=== PATIENT | female | born 1980 | race Caucasian/White ===

== ENCOUNTER 2016-08-21 14:09 | Emergency (ER) | payer MEDICARE, MEDICAID ==
[2016-08-21 14:21] VITALS: BP 115/73
[2016-08-21] MEDS ORDERED: IBUPROFEN 400 MG TABLET PO ONE (14:49)
--- OUTSIDE RECORDS SUMMARY | 2016-08-21 14:55 | XMS REPORT | Continuity of Care Document ---
:1980 Author Organization [facility] ([facility]) Address [address] [place] [address] Phone [phone] Care Team Providers Name Role Phone [phone], Need To Check Primary Care Provider Unavailable Source Comments This disclosure is being made pursuant to the Care Everywhere program, applicable federal and state laws, and may not contain all informaitonavailable regarding this patient.[facility] ([facility]) Active Allergies and Adverse Reactions Allergen Noted Date Severity Reactions Comments Codeine 02/13/2009 Nausea & Vomiting,Dizziness Other Agent 09/15/2010 Urticaria Lips, throat, and eyes (Hives),Angioedema swell, hives fruit acid. Current Medications Prescription Sig. Disp. Refills Start Date End Date Status SUMATRIPTAN SUCCINATE take by mouth as Active (IMITREX PO) needed. For migraines lubiprostone Take 1 Cap by 30 Cap 1 04/09/2011 Active (AMITIZA) 24 mcg mouth daily. capsule Indications: Chronic Idiopathic Constipation levothyroxine 50 mcg Take 50 mcg by Active tablet mouth every morning before breakfast. buPROPion 75 mg Take 75 mg by Active tablet mouth 2 times daily. lamoTRIgine 100 mg XR Take 200 mg by 10/16/2015 Active tablet mouth daily. lactobacillus Take 1 capsule by Active rhamnosus (gg) mouth daily. (CULTURELLE) 15 billion cell capsule docusate 100 mg Take 200 mg by Active capsule mouth daily. simethicone 250 mg Take 1 tablet by Active cap mouth daily. cholecalciferol Take 5,000 Units Active (VITAMIN D3) 5,000 by mouth daily. unit capsule DULoxetine 30 mg XR Take 1 capsule (30 30 capsule 11 10/29/2015 Active capsule mg total) by mouth daily. Active Problems Problem Noted Date H/O: hysterectomy 09/15/2010 Irritable bowel syndrome 09/15/2010 Other specified and placental problems affecting management of 2007 mother, antepartum Most Recent Encounters Date Type Specialty Providers Description 08/17/2016 Lab Requisition Pathology Lab Services, Dx: Neoplasm of [facility] uncertain behavior of skin 08/16/2016 Office Visit Selvin Cheng MD Subj: Appointment Specialty Scheduled Immunizations Name Dates Previously Given Next Due Influenza, unspecified 05/02/2015 Social History Tobacco Use Types Packs/Day Years Used Date Former Smoker Cigarettes 0.5 Quit: 03/24/2008 Smokeless Tobacco: Never Used Tobacco Cessation:Counseling Given: Yes Comments: Alcohol Use Drinks/Week oz/Week Comments No Last Filed Vital Signs Vital Sign Reading Time Taken Blood Pressure 110/64 12/23/2015 9:02 AM CDT Pulse 60 12/23/2015 9:02 AM CDT Temperature 36.8 C (98.2 F) 12/23/2015 9:02 AM CDT Respiratory Rate 16 12/23/2015 9:02 AM CDT Height 1.584 m (5' 2.36") 12/23/2015 9:02 AM CDT Weight 71.215 kg (157 lb) 12/23/2015 9:02 AM CDT Body Mass Index 28.38 12/23/2015 9:02 AM CDT Oxygen Saturation - - Plan of Care Date Type Specialty Providers Description 09/08/2016 Appointment Selvin Cheng MD [address] [place] [address] [phone] (Fax) Subj: Appointment Specialty Dk Patrick MD [address] [place] [address] [phone] (Fax) Rescheduled 09/08/2016 Appointment Selvin Cheng MD [address] [place] [address] [phone] (Fax) Subj: Appointment Specialty Dk Patrick MD [address] [place] [address] [phone] (Fax) Scheduled Default, Other Billg - Defo [address] [place] [address] [phone] (Fax) Hossein Swartz MD [address] [place] [address] [phone] (Fax) Health Maintenance Due Date Last Done Comments Hepatitis B Vaccine (1 of 3 - Primary Series) 1980 Tdap Vaccine 1989 Lipid Disorder Screening 1996 MMR Vaccine 1996 Td Vaccine 1996 Cervical Cancer Screening 2008 Influenza Vaccine: Seasonal (#1) 01/12/2016 05/02/2015 Results from Last 3 Months DERMATOPATHOLOGY EXAM (08/13/2016 9:00 AM) Component Value Range Case Report Surgical Pathology Case: [id number] Authorizing Provider:[facility], [facility] Collected: 08/13/2016 09:00 AM Pathologist: Samantha Loomis MD Received:08/17/2016 09:53 AM Specimen:Skin, other, specify, R shoulder Diagnosis Skin, right shoulder, shave biopsy: Seborrheic keratosis. I have personally reviewed this case and edited the report as necessary. Clinical Information Tissue source/site: [id number] shoulder. Pertinent clinical history and findings: 0.7 cm brown slight papule. Clinical differential diagnosis: Irrit justyna K versus atypical nevus. Gross Description A.Received in formalin, in a container labeled Debbie Betts M, date of , and "R shoulder", is a 1.2 x 0.8 x 0.1 cm walsh shave biopsy.The specimen is inked, quadrisected and submitted entirely in A1. 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 Margins appear uninvolved in the plane of sectioning. Performed by:Dk Cox MD, R4/rls Specimen Skin - Skin, other, specify
[2016-08-21] MEDS ORDERED: IBUPROFEN 400 MG TABLET ONE (15:00)
--- NOTE | 2016-08-21 15:00 | ERNOTE ---
Lower Extremity HPI - Narrative Date of Service: 08/21/16 - General Lower Extremities Pain: ankle: right Time Seen by Provider: 08/21/16 14:37 Source: patient Exam Limitations: no limitations - Immun/Allergies/Home Medications Immunizations: IMMUNIZATION HX Immunizations Up to Date Yes History of Influenza Vaccine Yes Allergies/Adverse Reactions: Allergies Allergy/AdvReac Type Severity Reaction Status Date / Time codeine [Codeine] AdvReac Severe Nausea Verified 08/21/16 14:21 Home Medications: HOME MEDICATIONS Sennosides [Senna] 8.6 mg PO BID 01/09/13 [Last Taken 01/09/13] Simethicone [Gas Relief] 125 mg PO DAILY 09/22/15 [Last Taken Unknown] lamoTRIgine [Lamictal] 50 mg PO HS 09/22/15 [Last Taken Unknown] Levothyroxine Sodium [Synthroid] 25 mcg PO DAILY 12/24/15 [Last Taken Unknown] Ibuprofen [Motrin] 800 mg PO QID #100 tab 08/21/16 [Last Taken Unknown] Lubiprostone [Amitiza] 8 mcg PO DAILY 08/21/16 [Last Taken Unknown] - History of Present Illness Narrative: Missed a step after an indoor stairway landing at her boyfriend's mother's house , resulting in an inversion injury right ankle. Previous fracture right ankle. Lots of pain, lateral right ankle and dorsolateral right foot. Occurred: just prior to arrival Location of Incident: other Method of Injury: Reports: other Reason for Fall: Reports: other Loss of Consciousness: Reports: no loss of consciousness Modifying Factors - (Improves): Reports: rest Modifying Factors - (Worsens): Reports: jarring, movement Associated Symptoms: Reports: unable to bear weight Other Injuries: Reports: none Subsequent Symptoms: Denies: sensory loss, numbness, motor loss Prior Treament: Denies: currently on antibiotics Review of Systems - Review of Systems Constitutional: Present: no symptoms reported EYE: Present: no symptoms reported ENT: Present: no symptoms reported Respiratory: Present: no symptoms reported Cardiology: Present: no symptoms reported Gastrointestinal/Abdominal: Present: no symptoms reported Genitourinary: Present: no symptoms reported Musculoskeletal: Present: See HPI Skin: Present: no symptoms reported Neurological: Present: no symptoms reported Endocrine: Present: no symptoms reported Hematologic/Lymphatic: Present: no symptoms reported Psych: Present: no symptoms reported All Other Systems: All systems neg except as marked - Patient's Past Medical History Patient History - Medical: No pertinent hx, Hypothyroidism, Seizures Patient History - Cancer: No Hx of Cancer Patient History - Surgical Procedures: Cholecystectomy, Other - Social History Living Situations: home Alcohol Use: none Drug Use: none - Immunizations Immunizations Up to Date: Yes History of Influenza Vaccine: Yes Physical Exam - Physical Exam General Appearance: Present: wd/wn, alert, no apparent distress Eye Exam: Normal inspection: bilateral, PERRL: bilateral, EOMI: bilateral Ears, Nose, Throat: Present: normal ENT inspection Neck: Present: normal inspection Respiratory: Present: no respiratory distress Cardiovascular/Chest: Present: regular rate, rhythm Back Exam: Present: normal inspection Extremity Exam: Present: other - right lateral ankle swollen, distal fibula, lateral ligaments, and dorsolateral right mule tender. Neurological Exam: Present: alert, oriented, normal mood/affect, no motor/ sensory deficits Skin Exam: Present: normal color, warm/dry ED Progress - Vital Signs Patient's Vital Signs:: I have reviewed the patient's vital signs. Vital Signs: Vital Signs 08/21/16 14:15 Temperature 37.1 C Pulse Rate 89 Respiratory 12 Rate Blood Pressure 115/73 O2 Sat by Pulse 100 Oximetry - X-Ray X-Ray #1 X-Ray: ankle Interpretation: Interp. by me - tiny fracture line through distal fibula. - Progress/Reassessment Chief Complaint: Ankle Injury/ Pain Progress:: Improved Departure Clinical Impression: Sprain of ankle Qualifiers: Encounter type: initial encounter Involved ligament of ankle: unspecified ligament Laterality: right Qualified Code(s): S93.401A - Sprain of unspecified ligament of right ankle, initial encounter Fibula fracture Qualifiers: Encounter type: initial encounter Fibula location: distal Fracture type: closed Fracture morphology: other fracture Laterality: right Qualified Code(s): S82.831A - Other fracture of upper and lower end of right fibula, initial encounter for closed fracture - Departure Disposition: Home self-care Condition: Good Instructions: Ankle Sprain, Fibular Ankle Fracture Treated With or Without Immobilization, Adult, RICE for Routine Care of Injuries, [id number] Additional Instructions: Call ortho office on Tuesday, for appt sometime next week. Prescriptions: Ibuprofen [Motrin] 800 mg PO QID #100 tab
== END 2016-08-21 15:32 | disposition home or self-care (01) ==
LOC: ER 14:09
PROC: 2W3SX1Z Immobilization of Right Foot using Splint (ICD-10-PCS; principal; 2016-08-21)
DX: S93.401A Sprain of unspecified ligament of right ankle, initial encounter (principal); S82.831A Other fracture of upper and lower end of right fibula, initial encounter for closed fracture; W10.8XXA Fall (on) (from) other stairs and steps, initial encounter; Y93.9 Activity, unspecified; Y92.009 Unspecified place in unspecified non-institutional (private) residence as the place of occurrence of the external cause; E03.9 Hypothyroidism, unspecified

== ENCOUNTER 2016-09-07 21:11 | Emergency (ER) | payer MEDICARE, MEDICAID ==
--- OUTSIDE RECORDS SUMMARY | 2016-09-07 22:32 | XMS REPORT | Continuity of Care Document ---
:1980 Author Organization [facility] ([facility]) Address [address] [place] [address] Phone [phone] Care Team Providers Name Role Phone [phone], Need To Check Primary Care Provider Unavailable Source Comments This disclosure is being made pursuant to the Care Everywhere program, applicable federal and state laws, and may not contain all informaitonavailable regarding this patient.[facility] ([facility]) Active Allergies and Adverse Reactions Allergen Noted [...] Description 09/08/2016 Appointment Selvin Cheng MD [address] [place] [address] [phone] (Fax) Dx: Vision loss, Specialty Dk Patrick MD [address] [place] [address] [phone] (Fax) right eye (Primary Dx) 09/08/2016 Appointment Selvin Cheng MD [address] [place] [address] [phone] (Fax) Subj: Upcoming Appt Specialty Dk Patrick MD [address] [place] [phone] (Fax) Reminder Default, Other Billg - Defo [address] [place] [address] [phone] (Fax) Hossein Swartz MD [address] [place] [address] [phone] (Fax) Health Maintenance Due Date Last Done Comments Hepatitis B Vaccine (1 of 3 - Primary Series) 1980 Tdap Vaccine 1989 Lipid Disorder Screening 1996 MMR Vaccine 1996 Td Vaccine 1996 Cervical Cancer Screening 2008 Influenza Vaccine: Seasonal (#1) 01/12/2016 05/02/2015 Results from Last 3 Months DERMATOPATHOLOGY EXAM (08/13/2016 9:00 AM) Component Value Range Case Report Surgical Pathology Case: [id number] Authorizing Provider:[facility], [facility] Collected: 08/13/2016 09:00 AM Pathologist: Samantha Loomis MD Received:08/17/2016 09:53 AM Specimen:Skin, other, specify, R shoulder Diagnosis Skin, right shoulder, shave biopsy: Seborrheic keratosis. I have personally reviewed this case and edited the report as necessary. Clinical Information Tissue source/site: [id number] shoulder. Pertinent clinical history and findings: 0.7 cm brown slight papule. Clinical differential diagnosis: Irrit justyna K versus atypical nevus. Gross Description A.Received in formalin, in a container labeled Debbie Betts, date of , and "R shoulder", is [...]
--- NOTE | 2016-09-07 22:46 | ERNOTE ---
Medical Problem HPI - General Chief Complaint: Laceration Time Seen by Provider: 09/07/16 22:26 Source: patient, family Exam Limitations: no limitations - Immun/Allergies/Home Medications Immunizations: IMMUNIZATION HX Immunizations Up to Date Yes History of Influenza Vaccine Yes Allergies/Adverse Reactions: Allergies codeine [Codeine] Adverse Reaction (Severe, Verified 08/21/16 14:21) Nausea Home Medications: HOME MEDICATIONS Sennosides [Senna] 8.6 mg PO BID 01/09/13 [Last Taken 01/09/13] Simethicone [Gas Relief] 125 mg PO DAILY 09/22/15 [Last Taken Unknown] lamoTRIgine [Lamictal] 50 mg PO HS 09/22/15 [Last Taken Unknown] Levothyroxine Sodium [Synthroid] 25 mcg PO DAILY 12/24/15 [Last Taken Unknown] Ibuprofen [Motrin] 800 mg PO QID #100 tab 08/21/16 [Last Taken Unknown] Lubiprostone [Amitiza] 8 mcg PO DAILY 08/21/16 [Last Taken Unknown] - History of Present History Narrative: lacerated her finger trying to get a knife out of the drawer. Timing: constant Severity: mild Review of Systems - Review of Systems All Other Systems: All systems neg except as marked - Patient's Past Medical History Patient History - Medical: No pertinent hx, Hypothyroidism, Seizures Patient History - Cancer: No Hx of Cancer Patient History - Surgical Procedures: Cholecystectomy, Other - Social History Living Situations: home Alcohol Use: none Drug Use: none - Immunizations Immunizations Up to Date: Yes History of Influenza Vaccine: Yes Physical Exam - Physical Exam General Appearance: Present: wd/wn, alert, no apparent distress Ears, Nose, Throat: Present: normal ENT inspection Respiratory: Present: no respiratory distress, no accessory muscle use Extremity Exam: Present: normal except - - left ring finger has laceration starting on the pad and going through to the medial side, no bleeding Neurological Exam: Present: alert, oriented, normal mood/affect, no motor/ sensory deficits Skin Exam: Present: other - laceration left ring finger ED Progress - Progress/Reassessment Chief Complaint: Laceration Procedures Left 4th Digit Date and Time: Laceration repair left ring finger pad Anesthesia: 1% Lidocaine I & D Prep: betadine prep, sterile drapes applied Length of Repair/Wound (cm): 1.25 - on pad 0.5 cm on side Wound's Depth/Shape: into subcutaneous - from palmar surface of the pad and out the medial side of the finger Wound Explored: clean, no foreign body Wound Intervention: irrigated w/saline Distal NVT: neuro/vasc intact, no tendon injury Wound Repaired With: sutures Suture Size/Type: 5-0, nylon Number of Sutures: 3 - only pad laceration closed, side lac closed with steri strips Layer Closure: Simple Estimated blood loss (ml): 10 Wound Dressing: sterile dressing applied, splint applied Complications: Pt rené procedure well Departure - Departure Clinical Impression: Laceration of finger of left hand Qualifiers: Encounter type: initial encounter Qualified Code(s): S61.219A - Laceration without foreign body of unspecified finger without damage to nail, initial encounter Disposition: Home Follow Up Needed Condition: Good Instructions: Laceration Care, Adult, [id number] Additional Instructions: May take tylenol or ibuprofen for pain as needed. Keep elevated to help with throbbing. have sutures taken out in 7-10 days
[2016-09-07] MEDS ORDERED: LIDOCAINE HCL 20 ML VIAL ONE (23:17)
[2016-09-08 00:11] VITALS: BP 109/75
== END 2016-09-07 23:52 | disposition home or self-care (01) ==
LOC: ER 21:11
PROC: 0JQK0ZZ Repair Left Hand Subcutaneous Tissue and Fascia, Open Approach (ICD-10-PCS; principal; 2016-09-07)
DX: S61.219A Laceration without foreign body of unspecified finger without damage to nail, initial encounter (principal); W26.0XXA Contact with knife, initial encounter; Y93.G3 Activity, cooking and baking; Y92.9 Unspecified place or not applicable; Y99.8 Other external cause status

== ENCOUNTER 2017-06-18 15:58 | Emergency (ER) | payer MEDICARE, MEDICAID ==
[2017-06-18] MEDS ORDERED: ASPIRIN 81 MG TAB.CHEW ONE (16:25)
[2017-06-18] MEDS: ASPIRIN 81 MG TAB.CHEW PO ONE (16:27)
[2017-06-18 16:35] LABS: Hematocrit 40.3 % (37.0-47.0); Hemoglobin 13.8 gm/dL (12.5-16.0); Mean Cell Volume 89.6 fl (78-100); Mean Corpuscular Hemoglobin 30.7 pg (27-31); Mean Corpuscular Hgb Conc 34.2 g/dl (32-36); Mean Platelet Volume 11.6 fl (6.0-9.5); Neutrophil # 5.1 K/mm3 (1.3-6.0); Neutrophil % 63.5 % (42-75.0); Platelet Count 162 K/mm3 (150-450); Red Cell Distribution Width 11.9 % (11.5-14.0); White Blood Count 8.1 K/mm3 (4.0-10.5)
[2017-06-18 16:53] LABS: ALT 20 U/L (19-67); AST 14 U/L (0-48); Albumin * 3.6 gm/dl (3.4-5.0); Alkaline Phosphatase * 52 U/L (50-170); Anion Gap 9.4 mmol/L (6.8-13.8); BUN/Creatinine Ratio 11.8 (9.0-21.6); Bilirubin, Total 0.4 mg/dL (0.0-1.1); Blood Urea Nitrogen 11 mg/dL (3-23); Ca. Corrected For Albumin 8.4 mg/dL (8.4-10.2); Calcium * 8.4 mg/dL (7.9-10.9); Carbon Dioxide 27.3 mmol/L (24-32.6); Chloride 108 mmol/L (97-106); Glucose * 89 mg/dL (70-110); Magnesium 1.7 mg/dL (1.2-2.8); Potassium 3.7 mmol/L (3.4-4.6); Sodium 141 mmol/L (132-142); Total Protein 7.2 gm/dL (6.2-8.2); Troponin I Less than 0.017 ng/ml (0.00-0.10)
[2017-06-18] MEDS ORDERED: AZITHROMYCIN 250 MG TABLET ONE (18:19)
[2017-06-18] MEDS: AZITHROMYCIN 250 MG TABLET PO ONE (18:22)
--- NOTE | 2017-06-18 18:22 | ERNOTE ---
Chest Pain/Cardiac HPI Chief Complaint: Chest Pain Time Seen by Provider: 06/18/17 16:11 Source: patient Exam Limitations: no limitations Immunizations: IMMUNIZATION HX Immunizations Up to Date Yes History of Influenza Vaccine Yes Allergies/Adverse Reactions: Allergies codeine [Codeine] Adverse Reaction (Severe, Verified 08/21/16 14:21) Nausea Home Medications: HOME MEDICATIONS Sennosides [Senna] 8.6 mg PO BID 01/09/13 [Last Taken 01/09/13] Simethicone [Gas Relief] 125 mg PO DAILY 09/22/15 [Last Taken Unknown] lamoTRIgine [Lamictal] 50 mg PO HS 09/22/15 [Last Taken Unknown] Levothyroxine Sodium [Synthroid] 25 mcg PO DAILY 12/24/15 [Last Taken Unknown] Ibuprofen [Motrin] 800 mg PO QID #100 tab 08/21/16 [Last Taken Unknown] Lubiprostone [Amitiza] 8 mcg PO DAILY 08/21/16 [Last Taken Unknown] Azithromycin [Zithromax] 250 mg PO DAILY #6 tablet 06/18/17 [Last Taken Unknown] Narrative: Patient presents with shortness of breath and chest pain with deep breath. 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 Her primary complaint however is shortness of breath and his onset was perhaps 24 hours ago and recent moderate in severity Timing: constant Severity/Quality: moderate Location: left chest Chest Pain Radiation: no radiation Activities at Onset: none Modifying Factors - Improves: Present: nothing Modifying Factors - Worsens: Present: nothing Aspirin Treatment Today: 81 mg x 4, provided by ED Associated Symptoms: Present: shortness of breath Prior Chest Pain/Cardiac Workup: Reports: non-cardiac Review of Systems - Review of Systems Constitutional: Present: See HPI EYE: Present: no symptoms reported ENT: Present: no symptoms reported Respiratory: Present: See HPI Cardiology: Present: chest pain Gastrointestinal/Abdominal: Present: no symptoms reported Genitourinary: Present: no symptoms reported Musculoskeletal: Present: no symptoms reported Skin: Present: no symptoms reported Neurological: Present: no symptoms reported Endocrine: Present: no symptoms reported Hematologic/Lymphatic: Present: no symptoms reported Psych: Present: no symptoms reported - Patient's Past Medical History Patient History - Medical: No pertinent hx, Hypothyroidism, Seizures, Other - Nikki Danlos syndrome Patient History - Cancer: No Hx of Cancer Patient History - Surgical Procedures: Cholecystectomy, Other - Social History Smoking Status: Former smoker Have you smoked in the past 12 months: No Alcohol Use: none Drug Use: none - Immunizations Immunizations Up to Date: Yes History of Influenza Vaccine: Yes Physical Exam - Physical Exam General Appearance: Present: wd/wn, alert, mild distress Head Exam: Present: normal inspection, no evidence of injury Eye Exam: Normal inspection: bilateral, PERRL: bilateral Ears, Nose, Throat: Present: normal ENT inspection, H, normal pharynx Neck: Present: normal inspection, nontender Respiratory: Present: no respiratory distress, no accessory muscle use, chest nontender, other - find course breath sounds Cardiovascular/Chest: Present: regular rate, rhythm, no murmur, normal peripheral pulses Gastrointestinal/Abdominal: Present: normal bowel sounds, nontender, nondistended, soft, no organomegaly Rectal Exam: Present: deferred Back Exam: Present: normal inspection, normal range of motion Extremity Exam: Present: normal inspection, non-tender, no edema, normal range of motion Neurological Exam: Present: alert, oriented, normal mood/affect Skin Exam: Present: normal color, warm/dry Lymphatic Exam: Present: no adenopathy ED Progress - Results and Orders Patient's Lab Results:: I have reviewed the patient's lab results. - Vital Signs Patient's Vital Signs:: I have reviewed the patient's vital signs. Vital Signs: Vital Signs 06/18/17 06/18/17 06/18/17 16:07 17:01 17:35 Temperature 36.8 C 36.8 C Pulse Rate 74 78 84 Respiratory 17 16 16 Rate Blood Pressure 127/72 109/68 110/73 O2 Sat by Pulse 100 100 100 Oximetry 06/18/17 18:00 Temperature 36.8 C Pulse Rate 83 Respiratory 16 Rate Blood Pressure 107/65 O2 Sat by Pulse 100 Oximetry - EKG EKG: NSR - X-Ray X-Ray #1 X-Ray: chest Interpretation: Reviewed by me - CT/Ultrasound CT/Ultrasound Narrative: CTA of the chest was reviewed by me - Progress/Reassessment Chief Complaint: Chest Pain Plan - Plan Plan: Patient be started on a Z-Renato and she will follow-up with her family physician in a week to 10 days Departure Clinical Impression: Bronchitis - Departure Disposition: Home self-care Condition: Good Instructions: Acute Bronchitis, [id number] Additional Instructions: See your family doctor in a week to 10 days Prescriptions: Azithromycin [Zithromax] 250 mg PO DAILY #6 tablet
[2017-06-18 18:44] VITALS: BP 104/68
== END 2017-06-18 18:30 | disposition home or self-care (01) ==
LOC: ER 15:58
DX: J40 Bronchitis, not specified as acute or chronic (principal); Z87.891 Personal history of nicotine dependence; Q79.6 Ehlers-Danlos syndromes